=== PATIENT | female | born 1995 | race Caucasian/White ===

== ENCOUNTER 2017-11-09 18:59 | Emergency (ER) | payer OTHER ==
--- NOTE | 2017-11-09 19:36 | RAD ---
RIGHT SHOULDER THREE VIEWS: 11/09/17 HISTORY: Pain. COMPARISON: None. FINDINGS: Glenohumeral joint space is preserved. No fracture or dislocation. The visualized right ribs are unre markable. IMPRESSION: No fracture or dislocation. POS: [facility]
== END 2017-11-09 20:19 | disposition home or self-care (01) ==
LOC: ERS 18:59
DX: M25.511 Pain in right shoulder (principal); F41.9 Anxiety disorder, unspecified; F32.9 Major depressive disorder, single episode, unspecified
CPT/HCPCS: 96372